=== PATIENT | female | born 1965 | race Caucasian/White ===

== ENCOUNTER 2023-09-20 06:52 | Day surgery (SDC) | payer MEDICARE ==
[~2023-09-20] VITALS: Ht 157.5 cm; Wt 66.8 kg
[2023-09-20] MEDS ORDERED: DOXY75CA5 PO (07:19)
[2023-09-20] MEDS ORDERED: BENZ-227 PO (07:21)
[2023-09-20] MEDS ORDERED: MONT-35 PO (07:22)
[2023-09-20] MEDS ORDERED: LEVO125 PO (07:28)
[2023-09-20] MEDS ORDERED: SODIUM CHLORIDE 0.9% 1,000 ML ONE (07:35)
[2023-09-20] MEDS: SODIUM CHLORIDE 0.9% 1,000 ML IV ONE (07:53)
[2023-09-20] MEDS ORDERED: MIDAZOLAM HCL 2 MG/2 ML VIAL ONE (07:54)
[2023-09-20] MEDS ORDERED: FentaNYL CITRATE PF 100 MCG/2 ML VIAL ONE (07:55)
[2023-09-20 09:27] VITALS: PULSE 69; RESP 14; O2SAT 99
[2023-09-20] MEDS ORDERED: MethylPREDNISolone SOD SUCC 125 MG/2 ML VIAL ONE (09:52)
[2023-09-20] MEDS: MethylPREDNISolone SOD SUCC 125 MG/2 ML VIAL IVP ONE (10:00)
[2023-09-20] MEDS ORDERED: LIDOCAINE 2% 11 ML JELLY ONE (12:00)
[2023-09-20] MEDS ORDERED: BENZOCAINE 20% 50 MCG/SPRAY 57 GM ONE (12:00)
[2023-09-20] MEDS ORDERED: LIDOCAINE 4% 50 ML SOLUTION ONE (12:00)
== END 2023-09-20 11:40 | disposition home or self-care (01) ==
LOC: SURGERY 06:52
PROVIDERS: ATTEND Internal Medicine Critical Care Medicine
DX: J38.4 Edema of larynx (principal); B37.0 Candidal stomatitis; E03.9 Hypothyroidism, unspecified; Z88.2 Allergy status to sulfonamides; Z98.890 Other specified postprocedural states
CPT/HCPCS: 31623; 87206; 87101; 87220; 87070; 88108; 31624; 71045; 87015; J3010; J2250; J2919; Q9967; J7030; Z7610